=== PATIENT | female | born 1950 | race Caucasian/White ===

== ENCOUNTER 2016-10-28 16:09 | Outpatient (CLI) | payer OTHER ==
--- NOTE | 2016-10-28 16:42 | DIAGNOSTIC IMAGING REPORT ---
PROCEDURE: XR HIP 2VW W W/O AP PELVIS-RT INDICATION: RIGHT HIP PAIN TECHNIQUE: AP view of the pelvis and hips with lateral view of the right hip. COMPARISON: None. FINDINGS: Right HIP: There is osteoarthritis involving the right hip with narrowing of the joint space. PELVIS: Osseous pelvis is otherwise normal. IMPRESSION: 1. Negative pelvis and osteoarthritis right hip.
== END 2016-10-28 23:00 ==
LOC: XR SRH 16:09
DX: M16.11 Unilateral primary osteoarthritis, right hip (principal)

== ENCOUNTER 2016-11-02 08:43 | Outpatient (CLI) | payer OTHER | END 2016-11-02 23:00 | LOC: LAB SRH 08:43 | DX: Z00.00 Encounter for general adult medical examination without abnormal findings (principal); E03.9 Hypothyroidism, unspecified | CPT/HCPCS: 90074; 90100; 92690; 93140; 94043; 95059 ==

== ENCOUNTER 2016-11-19 14:05 | Outpatient (CLI) | payer OTHER ==
--- NOTE | 2016-11-19 15:22 | DIAGNOSTIC IMAGING REPORT ---
PROCEDURE: MG BILATERAL SCREENING W/CAD INDICATION: SCREENING TECHNIQUE: Bilateral CC and MLO digital views. COMPARISON: Compared to 07/04/2015, 06/22/2015. FINDINGS: Computer-aided detection applied. Mildly dense. No change. IMPRESSION: 1. Negative mammogram. RESULT CODE: 1- Negative. A. A negative report should not delay biopsy if a dominant or clinically suspicious mass is present. 10-15% of cancers are not identified by x-ray. B. A negative report may reinforce clinical impression. C. Adenosis and dense breasts may obscure an underlying neoplasm. D. False positive reports average 6-10%. E.. A yearly screening mammogram is recommended. A reminder letter will be scheduled.
== END 2016-11-19 23:00 ==
LOC: MAM SRH 14:05
DX: Z12.31 Encounter for screening mammogram for malignant neoplasm of breast (principal)